=== PATIENT | female | born 1985 | race Caucasian/White ===

== ENCOUNTER 2019-12-01 02:47 | Observation (INO) | payer OTHER ==
[~2019-12-01] VITALS: Ht 152.4 cm; Wt 86.2 kg
[~2019-12-01 02:47] MED LIST: ALBUTEROL INH PO; FLONASE16 GM NS; MEDROL DOSPAK21 TA1 PO; PROZAC 20 MG20 M1; ROBAXIN500 MG PO; TORADOL 10 MG T10 MG PO; ZPAK PO
[2019-12-01 03:02] VITALS: BP 139/101
[2019-12-01 03:21] LABS: ABSOLUTE BASOPHILS 0.1 thou/uL (0.0-0.2); ABSOLUTE EOSINOPHILS 0.2 thou/uL (0.0-0.7); ABSOLUTE LYMPHOCYTES 3.2 thou/uL (0.8-5.3); ABSOLUTE MONOCYTES 0.9 thou/uL (0.0-1.2); ABSOLUTE NEUTROPHILS 9.5 thou/uL (1.6-8.1); BASOPHILS 0.9 %; EOSINOPHILS 1.4 %; MCH 30.7 pg (26.0-34.0); MCHC 34.9 g/dL (28.0-37.0); MONOCYTES 6.5 %; MPV 7.3 fl. (7.2-11.1); NUCLEATED RBCS 0 /100WBC; PLATELET COUNT* 316 thou/uL (150-400); POLYS 68.2 %; RBC 4.88 mil/uL (4.20-5.00); RDW-CV 12.9 % (10.5-14.5); WBC 13.9 thou/uL (4.0-11.0)
[2019-12-01 03:31] LABS: POTASSIUM 3.9 mmol/L (3.5-5.1)
[2019-12-01 03:33] LABS: APTT 28.2 Seconds (25.0-31.3)
[2019-12-01 03:43] LABS: ALBUMIN 3.8 g/dL (3.4-5.0); MAGNESIUM 1.8 mg/dL (1.8-2.4); TOTAL BILIRUBIN 0.2 mg/dL (<0.1-1.0); TOTAL PROTEIN 7.3 g/dL (6.4-8.2)
[2019-12-01 04:49] VITALS: BP 152/102
[2019-12-01 09:23] VITALS: BP 137/98
[2019-12-01] MEDS ORDERED: ASPIR 8181 MG PO (10:07)
[2019-12-01] MEDS ORDERED: CARVEDILOL3.125 MG PO (10:07)
[2019-12-01] MEDS ORDERED: NAPROSYN500 MG PO (10:07)
[2019-12-01 10:21] LABS: CHOLESTEROL 191 mg/dL (<200); HDL CHOLESTEROL 36 mg/dL (>40); LDL CHOLESTEROL 128 mg/dL (<100); TC:HDL 5.3 Ratio (Not establshd); TRIGLYCERIDE 137 mg/dL (<150); VLDL 27 mg/dL (<40)
[2019-12-01 10:22] LABS: SERUM ASSESSMENT Clear
--- NOTE | 2019-12-01 11:41 | EKG ---
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: TM : 1985 Requested By: Jose Enrique Menjivar Order Number: [id number] MD: Rick Aguero Measurements Intervals [place] Rate: 97 P: 42 AL: 165 QRS: 5 QRSD: 88 T: 79 QT: 343 QTc: 436 Interpretive Statements Sinus rhythm Probable left atrial enlargement RSR' in V1 or V2, probably normal variant Baseline wander in lead(s) II,III,aVR,aVL,aVF,V2 No previous ECG available for comparison Electronically Signed On 12-01-2019 11:40:55 CDT by Rick Aguero [email or web address] <ELECTRONICALLY SIGNED> By: Rick Aguero MD, FACC 12/01/19 1140 0257 0257 Rick Aguero MD, FACC /EPI
--- NOTE | 2019-12-01 12:49 | 2DMMODE ---
[place] [address] 2 D/M-MODE ECHOCARDIOGRAM Name: JUSTINO DICK Room: [address] Les Ponce#: [id number] Admission: 12/01/19 Attend Phys: Nikita Rivera Discharge: Date of : 85 Date of Service: 12/01/19 1249 Report #: [id number] THIS REPORT FOR: cc: FAM - No family physician/PCP FAM - No family physician/PCP Rick Aguero MD [facility] ~ APPROVED REPORT Study performed: 12/01/2019 09:40:08 EXAM: Comprehensive 2D, Doppler, and color-flow Echocardiogram Patient Location: Bedside BSA: 1.82 HR: 97 bpm BP: 152/102 mmHg Other Information Study Quality: Adequate Technically limited study due to body habitus. Indications Elevated Troponin Chest Pain 2D Dimensions IVSd: 12.01 (7-11mm) LVOT Diam: 16.25 (18-24mm) LVDd: 45.50 mm PWd: 11.38 (7-11mm) Ascending Ao: 28.57 (22-36mm) LVDs: 26.20 (25-40mm) Aortic Root: 28.47 mm Volumes Left Atrial Volume (Systole) LA ESV Index: 21.10 mL/m2 Aortic Valve AoV Peak Lane.: 1.09 m/s AO Peak Gr.: 4.72 mmHg LVOT Max P.79 mmHg AO Mean Gr.: 2.72 mmHg LVOT Mean P.08 mmHg LVOT Max V: 1.20 m/s AO V2 VTI: 18.14 cm LVOT Mean V: 0.82 m/s ANGELA (VTI): 2.34 cm2 LVOT V1 VTI: 20.47 [place] [address] 2 D/M-MODE ECHOCARDIOGRAM Name: JUSTINO DICK Room: [address] [place]ristie#: [id number] Admission: 12/01/19 Attend Phys: Nikita Rivera Discharge: Date of : 85 Date of Service: 12/01/19 1249 Report #: [id number] Mitral Valve E/A Ratio: 1.07 MV Decel. Time: 180.[address] 0.91 m/s MV PHT: 52.28 ms MVA (PHT): 4.21 cm2 TDI E/Lateral E': 7.58 E/Medial E': 9.[address] 0.10 m/s Lateral E' Lane.: 0.12 m/s Pulmonary Valve PV Peak Lane.: 0.88 m/s PV Peak Gr.: 3.12 mmHg Left Ventricle The left ventricle is normal size. There is normal LV segmental wall motion. There is normal left ventricular wall thickness. Left ventricular systolic function is normal. The left ventricular ejection fraction is within the normal range. LVEF is 60-65%. Right Ventricle The right ventricle is normal size. The right ventricular systolic function is normal. Atria The left atrium size is normal. Interatrial septum not well visualized. The right atrium size is normal. Aortic Valve The aortic valve is normal in structure. No aortic regurgitation is present. There is no aortic valvular stenosis. Mitral Valve The mitral valve is normal in structure. There is no mitral valve regurgitation noted. No evidence of mitral valve stenosis. Tricuspid Valve The tricuspid valve is normal in structure. There is no tricuspid valve regurgitation noted. Pulmonic Valve The pulmonary valve is normal in structure. There is no pulmonic valvular regurgitation[place] [address] 2 D/M-MODE ECHOCARDIOGRAM Name: JUSTINO DICK Room: [address]#: [id number] Admission: 12/01/19 Attend Phys: Nikita Rivera Discharge: Date of : 85 Date of Service: 12/01/19 1249 Report #: [id number] The aortic root is normal in size. IVC is not well visualized. Pericardium There is no pericardial effusion. <Conclusion> Left ventricular systolic function is normal. The left ventricular ejection fraction is within the normal range. <ELECTRONICALLY SIGNED> By: Rick Aguero MD, FACC 12/01/19 1249 1249 48 Rick Aguero MD, FACC /INF
[2019-12-01 14:01] VITALS: BP 137/98
== END 2019-12-01 15:52 | disposition home or self-care (01) ==
LOC: M.ERS 02:47 → M.TBA-ER 03:51 → M.2W 05:08
PROVIDERS: Family Medicine; Registered Nurse; ADMIT Internal Medicine; ATTEND Internal Medicine
DX: R07.89 Other chest pain (principal); R79.89 Other specified abnormal findings of blood chemistry; I10 Essential (primary) hypertension; D72.829 Elevated white blood cell count, unspecified; F17.210 Nicotine dependence, cigarettes, uncomplicated; Z79.899 Other long term (current) drug therapy; Z20.828 Contact with and (suspected) exposure to other viral communicable diseases

== ENCOUNTER 2019-12-08 09:09 | Inpatient (IN) | payer OTHER ==
[~2019-12-08] VITALS: Ht 152.4 cm; Wt 88.5 kg
[2019-12-08] VITALS (13 sets, daily range): BP systolic 99–168; BP diastolic 59–107
[~2019-12-08 09:09] MED LIST changes: +ASPIR 8181 MG PO; +CARVEDILOL3.125 MG PO; +NAPROSYN500 MG PO
[2019-12-08 09:40] LABS: HEMATOCRIT 44.3 % (37.0-47.0); HEMOGLOBIN 15.2 gm/dL (12.0-15.0); MCH 30.1 pg (26.0-34.0); MCHC 34.2 g/dL (28.0-37.0); MCV 88.2 fL (80.0-100.0); MPV 7.4 fl. (7.2-11.1); NUCLEATED RBCS 0 /100WBC; PLATELET COUNT* 388 thou/uL (150-400); RBC 5.03 mil/uL (4.20-5.00); WBC 10.2 thou/uL (4.0-11.0)
[2019-12-08 09:53] LABS: CALCIUM 8.6 mg/dL (8.5-10.1); CREATININE 0.8 mg/dL (0.6-1.3); POTASSIUM 4.3 mmol/L (3.5-5.1)
[2019-12-08 10:03] LABS: ALBUMIN 4.1 g/dL (3.4-5.0); MAGNESIUM 2.1 mg/dL (1.8-2.4); TOTAL BILIRUBIN 0.2 mg/dL (<0.1-1.0); TOTAL PROTEIN 7.8 g/dL (6.4-8.2)
[2019-12-08 10:24] LABS: ABSOLUTE EOSINOPHILS 0.4 thou/uL (0.0-0.7); ABSOLUTE LYMPHOCYTES 4.1 thou/uL (0.8-5.3); ABSOLUTE MONOCYTES 0.6 thou/uL (0.0-1.2); ABSOLUTE NEUTROPHILS 5.1 thou/uL (1.6-8.1); PLATELET ESTIMATE ADEQUATE
[2019-12-08 10:57] LABS: URINE BILIRUBIN NEGATIVE (Negative); URINE BLOOD NEGATIVE (Negative); URINE CLARITY CLEAR; URINE COLOR YELLOW; URINE GLUCOSE-RANDOM NEGATIVE (Negative); URINE KETONES NEGATIVE (Negative); URINE LEUKOCYTES-REFLEX NEGATIVE (Negative); URINE NITRITE-REFLEX NEGATIVE (Negative); URINE PROTEIN NEGATIVE (Negative); URINE UROBILINOGEN 0.2 E.U./dl (0.2-1.0)
[2019-12-08 11:06] LABS: AMP/METHAMP Negative (Negative); BARBITURATES Negative (Negative); BENZODIAZEPINES Negative (Negative); COCAINE Negative (Negative); METHADONE Negative (Negative); OPIATES Negative (Negative); PCP Negative (Negative); THC Negative (Negative)
--- NOTE | 2019-12-08 12:40 | NUR ---
BEBETO, FROM CARDIOLOGY CALLED TO INFORM THIS NURSE THAT THE PATIENT WILL BE GOING TO [facility] THIS AFTERNOON AND TO START NS AT 75 ML/HR. A VERBAL ORDER SHEET HAS BEEN FILLED OUT AND FAXED TO PHARMACY.
--- NOTE | 2019-12-08 15:45 | EKG ---
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 Heater: KHOA : 1985 Requested By: Aashish Maya Order Number: [id number] MD: Gilberto Curry Measurements Intervals [place] Rate: 83 P: 49 NC: 158 QRS: 18 QRSD: 105 T: 86 QT: 390 QTc: 459 Interpretive Statements Sinus rhythm Nonspecific T abnrm, anterolateral leads Baseline wander in lead(s) II,III,aVF Compared to ECG 12/01/2019 02:57:23 ST (T wave) deviation now present Myocardial infarct finding now present Electronically Signed On 12-08-2019 15:45:32 CDT by Gilberto Curry [email or web address] <ELECTRONICALLY SIGNED> By: Gilberto Curry MD, FACC 12/08/19 1545 5 5 Gilberto Curry MD, FACC /EPI
--- NOTE | 2019-12-08 18:08 | EKG ---
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
--- NOTE | 2019-12-08 18:54 | NUR ---
PT ADMITTED TO ROOM 218 VIA BED FROM MOLDING MACHINE SETTER AT APPROXIMATELY 1800. REPORT RECEIVED FROM MARIJA GHOTRA. ADMISSION ASSESSMENT AND HISTORY CHARTED. POST CATH ACCESS INTO RIGHT RADIAL-POST CARDIAC CATH ASSESSMENT AND VITALS CHARTED. REFER TO CHARTING. PT INSTRUCTED ON IMMOBILIZATION OF RIGHT UPPER EXTREMITY AND COMMUNICATES UNDERSTANDING OF EDUCATION. IVF PER CURRENT BAG HANGING PER MOLDING MACHINE SETTER. PT ORIENTED TO ROOM AND CALL LIGHT. HOME MEDICATIONS RECONCILED. TRACING SR ON THE SINGLE STROKE PREFORMER. ON RA SAT UPPER 90'S. DENIES ANY PAIN OR SHORTNESS OF BREATH. MEDS PER APR. HOURLY ROUNDING OBSERVED. BED IN LOW POSITION. CALL LIGHT WITHIN REACH. WILL CONTINUE PLAN OF CARE. PROBABLE DISCHARGE HOME TOMORROW 12/08.
[2019-12-09 04:00] VITALS: BP 114/87
[2019-12-09 05:40] LABS: ABSOLUTE BASOPHILS 0.1 thou/uL (0.0-0.2); ABSOLUTE EOSINOPHILS 0.2 thou/uL (0.0-0.7); ABSOLUTE LYMPHOCYTES 3.5 thou/uL (0.8-5.3); ABSOLUTE MONOCYTES 0.7 thou/uL (0.0-1.2); ABSOLUTE NEUTROPHILS 5.1 thou/uL (1.6-8.1); BASOPHILS 0.8 %; EOSINOPHILS 2.6 %; LYMPHOCYTES 36.2 %; MCH 29.6 pg (26.0-34.0); MCHC 33.2 g/dL (28.0-37.0); MCV 88.9 fL (80.0-100.0); MONOCYTES 7.4 %; MPV 7.7 fl. (7.2-11.1); NUCLEATED RBCS 0 /100WBC; PLATELET COUNT* 371 thou/uL (150-400); RBC 4.72 mil/uL (4.20-5.00); WBC 9.6 thou/uL (4.0-11.0)
[2019-12-09 06:01] LABS: CALCIUM 8.4 mg/dL (8.5-10.1); CREATININE 0.7 mg/dL (0.6-1.3)
[2019-12-09 06:02] LABS: TROPONIN-I LEVEL 1.59 ng/mL (<0.06)
[2019-12-09 07:51] VITALS: BP 135/98
--- NOTE | 2019-12-09 08:01 | NUR ---
ASSUMED CARE OF PT AT 0730. PT SITTING IN BED DRINKING COFFEE WAITING FOR BREAKFAST. A&0X4, DENIES ANY PAIN OR SHORTNESS OF BREATH AT THIS TIME. TRACING SR ON THE ASSEMBLER MUSICAL INSTRUMENTS. RIGHT RADIAL POST CATH SITE C/D/I WITH NO HEMATOMA NOTED. ON RA SAT 99%. PT UP AD GOYO IN ROOM. PT EDUCATED ON IMMOBILIZATION AND POST CATH RESTRICTIONS AND COMMUNICATES UNDERSTANDING. PT GOAL FOR TODAY IS BE SEEN BY CARDIAC REHAB, CLEARED BY CARDIOLOGY AND DISCHARGE PLANNING TO HOME. AM ASSESSMENT CHARTED. MEDICATIONS PER APR. PT REPOSITIONS SELF. HOURLY ROUNDING OBSERVED. BED IN LOW POSITION. CALL LIGHT WITHIN REACH. WILL CONTINUE PLAN OF CARE.
[2019-12-09] MEDS ORDERED: LIPITOR 40 MG T40 M1 PO (08:43)
[2019-12-09] MEDS ORDERED: COZAAR 50 MG TA50 M1 PO (08:43)
[2019-12-09] MEDS ORDERED: CLOPIDOGREL75 MG PO (08:43)
[2019-12-09] MEDS ORDERED: NITROGLYCERIN0.4 MG SUBLING (10:16)
--- NOTE | 2019-12-09 11:22 | EKG ---
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
[2019-12-09 11:34] VITALS: BP 135/98
[2019-12-09 12:04] VITALS: BP 135/98
[2019-12-09 12:21] VITALS: BP 136/93
--- NOTE | 2019-12-09 14:51 | NUR ---
DISCHARGE ORDERS RECEIVED. DISCHARGE INSTRUCTIONS, CARE NOTES, SCRIPTS AND FOLLOW UP APPTS GIVEN TO PT. PT COMMUNICATES UNDERSTANDING OF DISCHARGE TEACHING. PT GIVEN EDUCATION REGARDING POST CATH SITE CARE AND RESTRICTIONS. COMMUNICATES UNDERSTANDING OF EDUCATION. SEEN BY CARDIAC REHAB. IV AND LIBRARY CLERK REMOVED. PT DISCHARGED WITH ALL BELONGINGS AND PAPERWORK VIA WHEELCHAIR WITH NURSING STAFF TO SPOUSE OWN PERSONAL VEHICLE.
--- NOTE | 2019-12-13 16:38 | CARD ---
[address] [address] CARDIAC CATH REPORT Name: MAYLIN DICKCHARLEEN Chávez Room: [address]#: [id number] Admission: 12/08/19 Attend Phys: Hu Armstrong MD Discharge: 12/09/19 Date of : 85 Report #: [id number] THIS REPORT FOR: //name// cc: [facility] - Clinic physician unknown [facility] - [facility] physician unknown ~ APPROVED REPORT Study performed: 12/08/2019 12:54:17 Patient Details Patient Status: In-Patient Room #: The patient is a 34 year-old female Event Personnel Gilberto Curry Post Tensioning Ironworker, Yadira Castaneda RN Counseling Center Director, Des Ackerman RTR Monitor, Jamal Gonzalez Scrub, Rick Aguero Long Term Acute Care Registered Nurse Procedures Performed Right radial artery access, Left Heart Cath w/or w/o Coronaries LHC, PAOLO Place w/wo Plasty Single LAD, Hemostasis with Vasc band Indication Abnormal ECG, Non-STEMI , Chest pain Risk Factors Hypercholesterolemia, Tobacco History () Admission/Lab Medications/Medications given during procedure Glycoprotein IllbIlla Inhibitors, Heparin Unfract., Lidocaine Subcut 4 ml, Nitroglycerin IA 400 mcg, Verapamil IA 5 mg, Heparin IV 4100 units, Heparin IV 1000 units, Aggrastat IV bolus 8.2 ml, Nitroglycerin IC 200 mcg, Plavix PO 600 mg Procedure Narrative The patient was brought urgently to the Cardiac Catheterization Laboratory and was prepped and draped in a sterile manner. The right wrist was infiltrated with 2% Lidocaine subcutaneous anesthesia. A 6Fr Slender [place] sheath was inserted into the right radial artery. Coronary angiography was performed using coronary diagnostic catheters. The right coronary system was accessed and visualized with a [place] 4.0 5fr catheter. The left coronary system was accessed and visualized with a [place] 4.0 5fr catheter. Left ventricular/[place] [address] CARDIAC CATH REPORT Name: JUSTINO DICK Room: [address]#: [id number] Admission: 12/08/19 Attend Phys: Hu Armstrong MD Discharge: 12/09/19 Date of : [birth year] Report #: [id number] Valve gradient assessed via catheter pullback. Closure device was deployed with a 6 Fr Vasc band. The patient tolerated the procedure well and there were no complications associated with the procedure. There was no hematoma. Intraoperative Conscious Sedation Sedation start time: 14:07 Case end Time: 14:56 No sedation given. Fluoro Time: 11.1 minutes Dose: DAP [id number] cGycm2 2089.54 mGy Contrast Type and Amount: Visipaque 210 ml Coronary Angiography The patient's coronary anatomy is co- dominant. Diagnostic Cath Left Main The left main coronary artery is normal and bifurcates into a left anterior descending and circumflex coronary arteries. LAD The left anterior descending coronary has an 80% tubular narrowing from the ostium to first diagonal branch. The remainder the vessel is free of significant disease. Diagonal 1 The first diagonal branch is a large branch vessel that is minimally plaqued proximally and otherwise free of significant disease. Circumflex The circumflex coronary artery is normal in its proximal mid and distal portions. OM1 The first obtuse marginal branch is a high rising small branch that is normal. OM2 The second obtuse marginal branch is moderate in size and normal. OM3 The third obtuse marginal branch is large in size and normal. Right Coronary The right coronary artery is normal in its proximal mid and distal portion. R PDA A right PDA is large and normal. RPLV The right posterior lateral LV branch is small in branch and normal. Left Ventriculography Left Ventriculography was not performed. Hemodynamics The aortic pressure is 156/106 mmHg with a mean of 93 mmHg. The left ventricular pressure is 140/10 mmHg with a mean of mmHg. The left ventricular end diastolic pressure is 18 mmHg. [place] [address] CARDIAC CATH REPORT Name: JUSTINO DICK Room: [address] [place] M.R.#: [id number] Admission: 12/08/19 Attend Phys: Hu Armstrong MD Discharge: 12/09/19 Date of : [birth year] Report #: [id number] across the aortic valve upon pullback. Pullback from the left ventricle to the aorta revealed no gradient across the aortic valve. PCI Technique Lesion Anticoagulation was achieved with Heparin. Aggrastat IV bolus 8.2 ml. Percutaneous coronary intervention was performed on the proximal left anterior descending artery segment. The lesion stenosis prior to intervention was 80% with CHOCO 3 flow. A 6FR XB LAD 3.0 100CM Guide Catheter was used to engage the Left main ostium. A BMW 190cm Interventional Guidewire was used to cross the lesion. BALLOON DILATION A Balloon catheter Euphora SC 2.5x10 was inserted and inflated up to 12.00atm for 10seconds. Repeat angiography revealed the following post-dilatation results: 30% stenosis. Additional Inflation: 16.00atm for 10seconds. Additional Inflation: 16.00atm for 14seconds. STENT DEPLOYMENT A drug-eluting stent [place] RX Stent 3.0X15mm was inserted and inflated up to 16.00atm for 14seconds. Repeat angiography revealed the following post-stent deployment results: 0% stenosis. Additional Inflation: 16.00atm for 10seconds. Additional Inflation: 19.00atm for 11seconds. Final angiography reveals 0 % stenosis with CHOCO 3 flow. Conclusion 1. single vessel CAD with a 80% stenosis noted of the LAD ostium 2. successful placement of a drug eluting stent in the ostium of the LAD. 3. Moderately elevated left ventricular end-diastolic pressure consistent with acute on chronic diastolic heart failure. Recommendations 1. Percutaneous coronary intervention to the left into descending coronary artery. 2. Continue aggressive medical management. Medications Administered Clopidogrel [facility] [address] [facility] [place] [address] CARDIAC CATH REPORT Name: JUSTINO DICK Room: [address] IN M.R.#: [id number] Admission: 12/08/19 Attend Phys: Hu Armstrong MD Discharge: 12/09/19 Date of : 85 Report #: [id number] Diagnostic Cath Approved by: Gilberto Curry MD Date/Time: <ELECTRONICALLY SIGNED> By: Rick Aguero MD, FACC 12/13/19 1637 36 [email or web address] Aguero MD, FACC /INF
== END 2019-12-09 14:50 | disposition home or self-care (01) | DRG 247 ==
LOC: M.ERS 09:09 → M.TBA-ER 10:41 → M.2W 18:11
PROVIDERS: Emergency Medicine Emergency Medical Services; ADMIT Internal Medicine; ATTEND Internal Medicine
PROC: 4A023N7 Measurement of Cardiac Sampling and Pressure, Left Heart, Percutaneous Approach (ICD-10-PCS; principal; 2019-12-08)
PROC: 027034Z Dilation of Coronary Artery, One Artery with Drug-eluting Intraluminal Device, Percutaneous Approach (ICD-10-PCS; principal; 2019-12-08)
PROC: B211YZZ Fluoroscopy of Multiple Coronary Arteries using Other Contrast (ICD-10-PCS; principal; 2019-12-08)
DX: I21.4 Non-ST elevation (NSTEMI) myocardial infarction (principal); I31.9 Disease of pericardium, unspecified; I10 Essential (primary) hypertension; F17.210 Nicotine dependence, cigarettes, uncomplicated; F41.9 Anxiety disorder, unspecified; I25.10 Atherosclerotic heart disease of native coronary artery without angina pectoris; Z88.8 Allergy status to other drugs, medicaments and biological substances; Z71.6 Tobacco abuse counseling; Z79.899 Other long term (current) drug therapy